=== PATIENT | female | born 1970 | race Asian ===

== ENCOUNTER → 2017-08-08 | Outpatient (CLI) | payer OTHER ==
[~2017-08-08] MED LIST: ACE3 PO; KET10 PO; LEV500 PO; PER PO; PRO25 PO; VENL75CA58 PO
== END ==
LOC: RESP 06:53
PROVIDERS: ATTEND Family Medicine
DX: G47.33 Obstructive sleep apnea (adult) (pediatric) (principal); R06.83 Snoring